=== PATIENT | female | born 1995 | race Caucasian/White ===

== ENCOUNTER 2020-05-18 16:42 | Emergency (ER) | payer OTHER, SELFPAY ==
--- NOTE | ~2020-05-18 | US_ITS ---
EXAMINATION: US pelvic complete w TV DATE: 05/18/2020 19:36 INDICATION: Possible ectopic . Comparison:No prior studies for comparison. TECHNIQUE: Multiple transabdominal and endovaginal sonographic images of the pelvis performed. FINDINGS: The uterus measures 8.3 x 4.9 x 6.3 cm. Small amount of fluid in the endometrial canal. No intrauterine is identified. The endometrial complex measures 13 mm. The right ovary measures 3.2 x 2.1 x 2.8 cm and the left ovary measures 4.6 x 2.4 x 2.6 cm. There is a complex echogenic structure in the right ovary measuring 1.7 cm, nonspecific. There is no free fluid in the pelvis. There are no abnormal masses seen on either side. IMPRESSION: 1. No intrauterine identified. Small amount of fluid in the endometrial canal without evide nce for gestational sac. Focal echogenic structure in the right ovary measures 1.7 cm. Differential d iagnosis includes very early intrauterine , ectopic and failed . Recommen d follow-up with serial quantitative beta-hCG levels and ultrasound as clinically warranted. Reviewed, dictated and finalized at location A. IMPRESSION: 1. No intrauterine identified. Small amount of fluid in the endometri al canal without evidence for gestational sac. Focal echogenic structure in the right ovary measures 1.7 cm. Differential diagnosis includes very early intrau terine , ectopic and failed . Recommend follow-up w ith serial quantitative beta-hCG levels and ultrasound as clinically warranted.
[2020-05-18 16:46] VITALS: BP 124/62; PULSE 94; RESP 20; TEMP 37.1; O2SAT 100
--- NOTE | 2020-05-18 17:15 | ED.ABDPAIN ---
HPI - Abdominal Pain General Chief Complaint: Abdominal Pain <Tre Carcamo MD - Last Filed: 05/18/20 18:58> Stated Complaint: rlq abd pain <Tre Carcamo MD - Last Filed: 05/18/20 18:58> Time Seen by Provider: 05/18/20 16:53 <Tre Carcamo MD - Last Filed: 05/18/20 18:58> Source: patient <Tre Carcamo MD - Last Filed: 05/18/20 18:58> Mode of arrival: ambulatory <Tre Carcamo MD - Last Filed: 05/18/20 18:58> Limitations: no limitations <Tre Carcamo MD - Last Filed: 05/18/20 18:58> History of Present Illness HPI narrative: 24 years old white female complaining of right lower quadrant pain started 2-hour prior to arrival to the emergency room, sharp, spasmodic, no radiation, associated with 3 bowel movement of loose stool. Patient denies any fever, chills, nausea, vomiting, urinary symptoms, last menstrual. 4 weeks ago. No history of abdominal surgery. Patient on no medications, patient smokes, drinks and does not use drugs. Patient is , para 2, 0. The children are 1-1/2-year-old and 6 months old. <Tre Carcamo MD - Last Filed: 05/18/20 18:58> Related Data Allergies/Adverse Reactions: Allergies Allergy/AdvReac Type Severity Reaction Status Date / Time No Known Allergies Allergy Verified 05/18/20 17:34 <Tre Carcamo MD - Last Filed: 05/18/20 18:58> Review of Systems Review of Systems: Narrative: CONSTITUTIONAL: Denies fever, chills, or sweats. EYES: Denies visual changes, redness, or discharge. ENT: Denies rhinorrhea, congestion, sore throat, or otalgia. CARDIOVASCULAR: Denies chest pain, palpitations, or edema. RESPIRATORY: Denies cough or dyspnea. GASTROINTESTINAL: Denies abdominal pain, nausea, vomiting, or diarrhea. GENITOURINARY: Denies dysuria or hematuria. SKIN: Denies rash or itching. MUSCULOSKELETAL: Denies back pain, joint pain, or myalgia. NEUROLOGIC: Denies headache, numbness, or weakness. PSYCHIATRIC: Denies anxiety or depression. <Tre Carcamo MD - Last Filed: 05/18/20 18:58> PMFSH Social History Social History: Social History Gender identity (if verbalized by the patient): Female <Tre Carcamo MD - Last Filed: 05/18/20 18:58> Exam Narrative: Exam Narrative: General appearance: Well-developed, well-nourished Skin: Normal color Head: Normocephalic, nontraumatic Eyes: Clear conjunctiva ENT: Oropharynx normal, ears normal, nose normal Neck: Supple, nontender Chest and respiratory: Airway patent, no respiratory distress, no accessory muscle use Heart: Regular rate/rhythm Abdomen: Soft, mild right lower quadrant tenderness, no organomegaly, quiet bowel sounds Vascular: Normal peripheral pulses, normal capillary refill. Musculoskeletal: Normal range of motion, nontender back Neurologic: Alert and oriented ?3, [employer] is normal as tested, no gross motor deficit <Tre Carcamo MD - Last Filed: 05/18/20 18:58> Course Course Emergency Course: Stable <Tre Carcamo MD - Last Filed: 05/18/20 18:58> Vital Signs Vital signs: Vital Signs Temperature 37.1 C 05/18/20 16:46 Pulse Rate 94 05/18/20 16:46 Respiratory Rate 20 05/18/20 16:46 Blood Pressure 124/62 05/18/20 16:46 Pulse Oximetry 100 05/18/20 16:46 Temperature 37.1 C 05/18/20 16:46 Pulse Rate 94 05/18/20 16:46 Respiratory Rate 20 05/18/20 16:46 Blood Pressure 124/62 05/18/20 16:46 Pulse Oximetry 100 05/18/20 16:46 <Tre Carcamo MD - Last Filed: 05/18/20 18:58> Vital Signs Temperature 37.1 C 05/18/20 16:46 Pulse Rate 94 05/18/20 16:46 Respiratory Rate 20
[2020-05-18 17:24] LABS: Basophils Absolute Auto 0.1 K/mm3 (0.0-0.1); Basophils Percent Auto 0.4 % (0.2-1.2); Eosinophils Absolute Auto 0.1 K/mm3 (0-0.3); Eosinophils Percent Auto 0.6 % (0-4.4); Hematocrit 41.7 % (37.0-47.0); Hemoglobin 14.2 g/dL (12.0-15.0); Immature Granulocyte Absolute 0.09 K/mm3 (0.00-0.031); Immature Granulocyte Percent A 0.5 % (0-0.5); Lymphocytes Absolute Auto 2.01 K/mm3 (0.9-3.2); Mean Corpuscular HGB Conc 34.1 g/dl (32-36); Mean Corpuscular Hemoglobin 29.5 pg (26-34); Mean Corpuscular Volume 86.7 fl (80-100); Mean Platelet Volume 10.1 fl (7.4-10.4); Monocytes Absolute Auto 0.8 K/mm3 (0.1-0.6); Monocytes Percent Auto 4.6 % (2.6-8.5); Neutrophils Absolute Auto 13.8 K/mm3 (1.3-6.7); Neutrophils Percent Auto 81.9 % (45.5-73.1); Platelet Count Result 314 k/mm3 (150-375); Red Blood Count 4.81 M/mm3 (4.2-5.4); Red Cell Distribution Width 12.7 % (11.5-14.5); White Blood Count 16.8 K/mm3 (4.5-10.0)
[2020-05-18] MEDS: MORPHINE SULFATE 4 MG/ML INJ IV PUSH (17:34)
[2020-05-18] MEDS: ONDANSETRON INJ 4 MG/2 ML VIAL IV PUSH (17:34)
[2020-05-18 17:35] LABS: Alanine Aminotransferase 18 U/L (4-35); Albumin Level 4.5 g/dL (3.5-5.1); Alkaline Phosphatase 68 U/L (38-126); Anion Gap 10 mmol/L (8-16); Aspartate Amino Transferase 22 U/L (14-36); Bilirubin,Total 0.4 mg/dL (0.2-1.3); Blood Urea Nitrogen 11 mg/dL (7-17); Calcium 10.2 mg/dL (8.4-10.2); Carbon Dioxide 21 mmol/L (22-30); Chloride 105 mmol/L (98-107); Estimated CRCL calculation 83 ml/min; Estimated Glomerular Filt Rate > 60; Glucose 139 mg/dL (65-105); Lipase 47 U/L (23-300); Potassium 3.9 mmol/L (3.4-5.0); Sodium 136 mmol/L (137-145)
[2020-05-18 18:24] LABS: Add Urine Microscopic? YES; Appearance Urine Cloudy (Clear); Bacteria Urine 2+ /hpf; Bilirubin Urine Negative (Negative); Blood Urine 2+ (Negative); Color Urine Yellow (Yellow); Glucose Urine UA Negative (Negative); Ketones Urine Trace mg/dL (Negative); Leukocyte Esterase Ur 3+ LEU/UL (Negative); Mucus Urine Rare /lpf; Nitrate Urine Positive (Negative); Protein Urine 1+ mg/dL (Negative); RBC Urine >75 /hpf (0-2); Specific Grav Ur 1.017 (1.001-1.035); Squamous Epithelial Cell Urine Few /hpf (Few); Urobilinogen Urine Negative mg/dL (<2.0); WBC Urine 51-75 /hpf
[2020-05-18 20:05] LABS: Beta HCG Quantitative 120.78 mIU/ML
[2020-05-18] MEDS: CEPHALEXIN 500 MG CAPSULE PO (21:14)
[2020-05-18 21:15] VITALS: BP 131/77; PULSE 86; RESP 17; O2SAT 100
== END 2020-05-18 21:25 | disposition home or self-care (01) ==
PROVIDERS: Emergency Provider Emergency Medicine
DX: O26.891 Other specified pregnancy related conditions, first trimester (principal); N30.00 Acute cystitis without hematuria; Z3A.00 Weeks of gestation of pregnancy not specified
CPT/HCPCS: 36415; 76830; 76856; 80053; 81001; 81025; 83690; 84702; 85025; 87077; 87086; 87088; 87186; 96374; 96375; 99284; A9270; J2270; J2405